=== PATIENT | female | born 1995 | race Caucasian/White ===

== ENCOUNTER 2021-06-07 08:39 | Emergency (ER) | payer OTHER, MEDICAID ==
[~2021-06-07] VITALS: Ht 157.5 cm; Wt 99.8 kg
[2021-06-07 08:59] VITALS: BP 123/78
[2021-06-07] MEDS ORDERED: PROZAC40 MG PO (09:04)
[2021-06-07] MEDS ORDERED: NEURONTIN 300M300 M2 PO (09:05)
[2021-06-07] MEDS ORDERED: TOPAMAX100 MG PO (09:05)
[2021-06-07] MEDS ORDERED: TRILEPTAL150 MG PO (09:06)
== END 2021-06-07 10:05 | disposition home or self-care (01) ==
LOC: M.ERS 08:39
DX: U07.1 COVID-19 (principal); R05 Cough; J20.9 Acute bronchitis, unspecified; G43.909 Migraine, unspecified, not intractable, without status migrainosus; Z79.899 Other long term (current) drug therapy

== ENCOUNTER 2021-11-11 23:40 | Emergency (ER) | payer OTHER ==
[~2021-11-11] VITALS: Ht 157.5 cm; Wt 97.5 kg
[~2021-11-11 23:40] MED LIST: NEURONTIN 300M300 M2 PO; PROZAC40 MG PO; TOPAMAX100 MG PO; TRILEPTAL150 MG PO
[2021-11-11 23:48] VITALS: BP 157/104
== END 2021-11-12 00:16 | disposition home or self-care (01) ==
LOC: M.ERS 23:40
DX: T16.1XXA Foreign body in right ear, initial encounter (principal); G43.909 Migraine, unspecified, not intractable, without status migrainosus; Z88.1 Allergy status to other antibiotic agents; X58.XXXA Exposure to other specified factors, initial encounter; Y93.89 Activity, other specified; Y92.89 Other specified places as the place of occurrence of the external cause; Y99.8 Other external cause status